=== PATIENT | male | born 1955 | race African-American/Black ===

== ENCOUNTER 2018-06-28 09:14 | Outpatient (CLI) | payer MEDICAID ==
[~2018-06-28] VITALS: Ht 182.9 cm; Wt 74.1 kg
[2018-06-28] VITALS (11 sets, daily range): BP systolic 128–170; BP diastolic 76–94; Ht 182.9 cm; Wt 74.1 kg
[2018-06-28 09:53] LABS: BASOPHILS 0.9 % (0-2); EOSINOPHILS 4.3 % (0-7); HEMOGLOBIN 10.4 g/dL (13.5-17.5); IMMATURE GRANULOCYTES 0.2 % (0-5); LYMPHOCYTES 13.9 % (15-50); MCH 25.1 pg (26.0-34.0); MCHC 32.5 g/dL (31.0-37.0); MCV 77.3 fL (80.0-100.0); MONOCYTES 6.2 % (2-11); NEUTROPHILS 74.5 % (40-80); PLATELET COUNT 187 10x3/uL (130-400); RBC 4.14 10x6/uL (4.20-6.10); RDW 16.9 % (11.5-14.5); WBC 10.5 10x3/uL (4.8-10.8)
[2018-06-28 10:03] LABS: APTT 33.7 SECONDS (22.8-39.4); INR 1.1 (0.85-1.17); PROTIME 13.7 SECONDS (11.6-15.0)
[2018-06-28] MEDS ORDERED: HYDRALAZINE HCL50 MG PO (10:08)
[2018-06-28] MEDS ORDERED: ASPIRIN81 MG PO (10:09)
[2018-06-28] MEDS ORDERED: NORVASC10 MG PO (10:09)
[2018-06-28] MEDS ORDERED: LIPITOR80 MG PO (10:09)
[2018-06-28] MEDS ORDERED: FERROUS SULFAT325 MG PO (10:10)
[2018-06-28] MEDS ORDERED: CATAPRES0.1 MG PO (10:10)
[2018-06-28] MEDS ORDERED: COREG25 MG PO (10:10)
[2018-06-28 10:11] LABS: ANION GAP 14.4 mmol/L (8-16); CALCIUM 8.9 mg/dL (8.5-10.1); CARBON DIOXIDE 28.6 mmol/L (21.0-32.0); CREATININE - SERUM 3.6 mg/dL (0.6-1.3)
[2018-06-28] MEDS ORDERED: LANTUS SOL100 UNIT/1 SC (10:11)
[2018-06-28] MEDS ORDERED: FUROSEMIDE40 MG PO (10:11)
[2018-06-28] MEDS ORDERED: ISOSORBIDE DINI20 MG PO (10:12)
--- NOTE | 2018-06-28 12:59 | NUR ---
PATIENT ADMITTED TO ROOM 1201 VIA GURNY, SKIN W/D TO TOUCH, RESP. REGULAR AND EVEN AT 18. DRESSINGS TO RIGHT BACK FLANK DRY AND INTACT, IV S/L TO LEFT HAND. PATIENT TOLERATING ICE CHIPS WELL, REQUESTED COFFEE AND GIVEN, DAUGHTER AT BEDSIDE. DENIES ANY C/O PAIN WHEN ASKED. C/L WITHIN REACH AND SR'S UP X'S 2,
--- NOTE | 2018-06-28 19:39 | NUR ---
PATIENT RESTING IN BED WITH NO S/S OF DISTRESS. EMPTIED 600 ML FROM URINAL. ADMINISTERED MEDS PER ORDERS. PATIENT DENIES OTHER NEEDS AT THIS TIME. BED IN LOWEST POSITION AND CALL LIGHT WITHIN REACH. ENCOURAGED THE PATIENT TO CALL I SHE HAS NEEDS. WILL CONTINUE TO MONITOR.
[2018-06-28 21:54] LABS: BASOPHILS 0.7 % (0-2); EOSINOPHILS 4.3 % (0-7); HEMATOCRIT 27.5 % (42.0-54.0); HEMOGLOBIN 8.9 g/dL (13.5-17.5); IMMATURE GRANULOCYTES 0.1 % (0-5); LYMPHOCYTES 19.8 % (15-50); MCHC 32.4 g/dL (31.0-37.0); MCV 77.2 fL (80.0-100.0); MONOCYTES 10.3 % (2-11); NEUTROPHILS 64.8 % (40-80); RBC 3.56 10x6/uL (4.20-6.10)
[2018-06-28 21:55] LABS: PLATELET COUNT 119 10x3/uL (130-400); WBC 6.7 10x3/uL (4.8-10.8)
--- NOTE | 2018-06-29 02:27 | NUR ---
PATIENT RESTING IN BED WITH NO S/S OF DISTRESS. EMPTIED 600 ML FROM URINAL. ADMINISTERED MEDS PER ORDERS. PATIENT DENIES OTHER NEEDS AT THIS TIME. BED IN LOWEST POSITION AND CALL LIGHT WITHIN REACH. ENCOURAGED THE PATIENT TO CALL IF SHE HAS NEEDS. WILL CONTINUE TO MONITOR.
[2018-06-29 05:44] VITALS: BP 152/74
[2018-06-29 06:57] LABS: ANION GAP 14.1 mmol/L (8-16); CALCIUM 8.3 mg/dL (8.5-10.1); CARBON DIOXIDE 25.9 mmol/L (21.0-32.0); CREATININE - SERUM 3.1 mg/dL (0.6-1.3)
--- NOTE | 2018-06-29 07:00 | NUR ---
INITIAL ROUNDING ON THE PATIENT, HE IS AWAKE AND RESTING IN BED WATCHING TV. HE HAS FAMILY AT THE BEDSIDE. HE DENIES PAIN AND STATES "I AM SUPPOSED TO GO HOME THIS MORNING".
[2018-06-29 07:07] LABS: EOSINOPHILS 4.4 % (0-7); HEMATOCRIT 26.3 % (42.0-54.0); HEMOGLOBIN 8.4 g/dL (13.5-17.5); IMMATURE GRANULOCYTES 0.1 % (0-5); LYMPHOCYTES 18.3 % (15-50); MCH 24.6 pg (26.0-34.0); MCHC 31.9 g/dL (31.0-37.0); MCV 76.9 fL (80.0-100.0); MONOCYTES 7.5 % (2-11); NEUTROPHILS 68.7 % (40-80); PLATELET COUNT 111 10x3/uL (130-400); RBC 3.42 10x6/uL (4.20-6.10); RDW 17.2 % (11.5-14.5); WBC 7.2 10x3/uL (4.8-10.8)
[2018-06-29 08:33] VITALS: BP 157/83
[2018-06-29 14:06] LABS: BASOPHILS 1.1 % (0-2); EOSINOPHILS 4.8 % (0-7); HEMATOCRIT 26.1 % (42.0-54.0); HEMOGLOBIN 8.4 g/dL (13.5-17.5); LYMPHOCYTES 16.2 % (15-50); MCH 24.9 pg (26.0-34.0); MCHC 32.2 g/dL (31.0-37.0); MCV 77.2 fL (80.0-100.0); MONOCYTES 8.2 % (2-11); NEUTROPHILS 69.7 % (40-80); PLATELET COUNT 106 10x3/uL (130-400); RBC 3.38 10x6/uL (4.20-6.10); RDW 17.1 % (11.5-14.5); WBC 6.5 10x3/uL (4.8-10.8)
--- NOTE | 2018-06-29 14:16 | NUR ---
CALLED AND SPOKE TO NHAN IN DR RAMOS OFFICE, NHAN STATES SHE IS PAGING THE DOCTOR, AND SHE TOOK MY CALL BACK NUMBER
--- NOTE | 2018-06-29 14:33 | NUR ---
CALLED DR RAMOS OFFICE AGAIN AND REPORTED TO NHAN THE PATIENT HAVING BLOOD IN HIS URINE
--- NOTE | 2018-06-29 14:55 | NUR ---
PER DR RAMOS, HOLD THE DISCHARGE AND RECHECK CBC AT 1800, CALL WITH THE RESULTS.
[2018-06-29 18:55] LABS: BASOPHILS 1.2 % (0-2); EOSINOPHILS 5.5 % (0-7); HEMATOCRIT 25.9 % (42.0-54.0); HEMOGLOBIN 8.2 g/dL (13.5-17.5); IMMATURE GRANULOCYTES 0.2 % (0-5); MCH 24.5 pg (26.0-34.0); MCHC 31.7 g/dL (31.0-37.0); MCV 77.3 fL (80.0-100.0); MONOCYTES 7.6 % (2-11); NEUTROPHILS 67.5 % (40-80); PLATELET COUNT 105 10x3/uL (130-400); RBC 3.35 10x6/uL (4.20-6.10); RDW 17.2 % (11.5-14.5)
--- NOTE | 2018-06-29 19:15 | NUR ---
PAGED DR. RAMOS IN REGARDS TO H&H RESULTS
--- NOTE | 2018-06-29 19:42 | NUR ---
PAGED DR. VARGAS, CEO NA FOR DR. RAMOS, IN REGARDS TO H&H RESULTS
--- NOTE | 2018-06-29 19:49 | NUR ---
NOTIFIED THE PATIENT THAT I SPOKE WITH LOYD BAUER AND HE WILL NOT BE DISCHARGED TONIGHT.
[2018-06-29 20:00] VITALS: BP 137/72
[2018-06-30] VITALS: BP 142/73
[2018-06-30 04:30] VITALS: BP 137/83
--- NOTE | 2018-06-30 06:45 | NUR ---
INITIAL ROUNDING, PATIENT AWAKE, DRESSED AND SITTING IN THE BEDSIDE CHAIR WAITING TO BE DISCHARGED. HE DENIES PAIN, ON ROOM AIR, NO SOB NOTED.
[2018-06-30 07:11] LABS: EOSINOPHILS 5.3 % (0-7); HEMATOCRIT 30.6 % (42.0-54.0); IMMATURE GRANULOCYTES 0.3 % (0-5); LYMPHOCYTES 19.5 % (15-50); MCH 24.9 pg (26.0-34.0); MCHC 32.4 g/dL (31.0-37.0); MCV 77.1 fL (80.0-100.0); MONOCYTES 7.9 % (2-11); RBC 3.97 10x6/uL (4.20-6.10); RDW 17.1 % (11.5-14.5); WBC 6.9 10x3/uL (4.8-10.8)
[2018-06-30 07:20] LABS: ANION GAP 15.1 mmol/L (8-16); CALCIUM 8.6 mg/dL (8.5-10.1); CARBON DIOXIDE 25.9 mmol/L (21.0-32.0); CREATININE - SERUM 3.1 mg/dL (0.6-1.3)
[2018-06-30 07:31] LABS: HEMOGLOBIN 9.9 g/dL (13.5-17.5); PLATELET COUNT 164 10x3/uL (130-400)
[2018-06-30 08:55] VITALS: BP 148/97
--- NOTE | 2018-06-30 12:46 | NUR ---
REMOVED THE IV FROM PATIENT, CATH TIP INTACT
== END 2018-06-30 13:16 | disposition home or self-care (01) ==
LOC: D.SP 09:14 → D.M3 09:14 → D.RAD 11:00 → D.SP 11:00 → D.M3 12:48 → D.US 14:30 → D.SP 06-30 13:16
PROVIDERS: Internal Medicine Nephrology; ATTEND Internal Medicine Nephrology
DX: I12.9 Hypertensive chronic kidney disease with stage 1 through stage 4 chronic kidney disease, or unspecified chronic kidney disease (principal); N18.3 Chronic kidney disease, stage 3 (moderate); Z01.812 Encounter for preprocedural laboratory examination